=== PATIENT | female | born 1985 | race Caucasian/White ===

== ENCOUNTER 2019-05-30 14:36 | Emergency (ER) | payer MEDICAID ==
[~2019-05-30] VITALS: Ht 177.8 cm; Wt 118.0 kg
[2019-05-30 17:06] VITALS: BP 121/88
== END 2019-05-30 17:50 | disposition home or self-care (01) ==
LOC: ED 15:55
DX: R10.13 Epigastric pain (principal); Z90.49 Acquired absence of other specified parts of digestive tract
CPT/HCPCS: 36415; 74220; 80053; 83690; 84703; 85025; 85379; 99284

== ENCOUNTER 2019-06-05 15:31 | Emergency (ER) | payer MEDICAID ==
[~2019-06-05] VITALS: Ht 175.3 cm; Wt 117.8 kg
--- NOTE | 2019-06-05 16:28 | NUR ---
PT STATES SHE THINKS SHE HAS AN ULCER. PT IS RESTING COMFORTABLE, NO SIGNS OR SYMPTOMS OF DISTRESS
[2019-06-05] MEDS ORDERED: MAALOX/HYOSCYAMINE/LIDOCAINE 45 ML BTL PO ONE (16:30)
[2019-06-05 16:39] LABS: BASOPHILS # (AUTO) 0.04 x10^3/uL (0-0.1); BASOPHILS % (AUTO) 1 % (0-1); EOSINOPHILS # (AUTO) 0.05 x10^3/uL (0-0.4); EOSINOPHILS % (AUTO) 1 % (1-7); LYMPHOCYTES # (AUTO) 1.38 x10^3/uL (1-3.4); LYMPHOCYTES % (AUTO) 18 % (22-44); MD NO; MEAN CORPUSCULAR HEMOGLOBIN 33.8 pg (27.0-34.8); MEAN CORPUSCULAR VOLUME 99.4 fL (80-100); MEAN PLATELET VOLUME 9.6 fL (7.4-10.4); MONOCYTES # (AUTO) 0.58 x10^3/uL (0.2-0.8); MONOCYTES % (AUTO) 8 % (2-9); NEUTROPHILS # (AUTO) 5.57 x10^3/uL (1.8-6.8); NEUTROPHILS % (AUTO) 73 % (42-75); PLATELET COUNT 230 x10^3/uL (130-400); RED BLOOD COUNT 4.68 x10^6/uL (3.82-5.3); RED CELL DISTRIBUTION WIDTH 18.6 % (9.6-15.2)
[2019-06-05 16:41] LABS: ALANINE AMINOTRANSFERASE 66 U/L (12-78); ALBUMIN 3.1 g/dL (3.4-5.0); ANION GAP 8 mmol/L (5-15); CALCIUM 8.7 mg/dL (8.5-10.1); CHLORIDE 110 mmol/L (98-107); CREATININE 0.57 mg/dL (0.55-1.02)
[2019-06-05 16:45] LABS: ALKALINE PHOSPHATASE 135 U/L (45-117); BILIRUBIN,TOTAL 1.3 mg/dL (0.2-1.0); TOTAL PROTEIN 6.1 g/dL (6.4-8.2); TROPONIN I < 0.015 ng/mL (0.000-0.045)
[2019-06-05] MEDS ORDERED: LACTATED RINGERS 1,000 ML IVBOLUS ONE (17:00)
[2019-06-05] MEDS ORDERED: SODIUM CHLORIDE FLUSH 10ML SYR IVF ONE (17:00)
[2019-06-05] MEDS ORDERED: TRAZ-137 PO (17:01)
[2019-06-05] MEDS ORDERED: CLON2TAB PO (17:01)
--- NOTE | 2019-06-05 17:16 | NUR ---
PT AMBULATED TO BATHROOM W OUT DIFFICULTY. UA OBTAINED, IV FLUIDS INFUSING. PT RESTING COMFORTABLE.
[2019-06-05] MEDS ORDERED: MAALOX/HYOSCYAMINE/LIDOCAINE 45 ML BTL ONE (17:32)
[2019-06-05 17:36] LABS: MICROSCOPIC INDICATED
[2019-06-05 17:43] LABS: CULTURE INDICATED? NO
--- NOTE | 2019-06-05 18:20 | NUR ---
Patient/Caregiver given discharge instructions and they have confirmed that they understand the instructions. Patient ambulatory with steady gait.
[2019-06-05] MEDS ORDERED: ONDANSETRON ODT 4 MG ONE (18:25)
[2019-06-05 18:30] VITALS: BP 127/71
[2019-06-05] MEDS ORDERED: ONDANSETRON ODT 4 MG PO ONE (18:30)
[2019-08-18] MEDS ORDERED: METO10TA82 PO (07:57)
[2019-08-18] MEDS ORDERED: ONDA4TAB7 PO (07:58)
[2019-08-18] MEDS ORDERED: AMOX1TAB64 PO (08:08)
[2019-08-18] MEDS ORDERED: PANT40TA3 PO (08:24)
[2019-08-18] MEDS ORDERED: SUCR1TAB33 PO (08:24)
== END 2019-06-05 18:37 | disposition home or self-care (01) ==
LOC: ED 16:19
DX: E83.42 Hypomagnesemia (principal); R53.83 Other fatigue; R94.5 Abnormal results of liver function studies; R19.7 Diarrhea, unspecified; R53.1 Weakness
CPT/HCPCS: 36415; 80053; 81001; 83735; 84484; 84703; 85025; 93005; 99284; J7120; Q0162

== ENCOUNTER 2019-08-25 01:20 | Emergency (ER) | payer MEDICAID, OTHER ==
[~2019-08-25] VITALS: Ht 175.3 cm; Wt 110.0 kg
[~2019-08-25 01:20] MED LIST: AMOX1TAB64 PO; CLON2TAB PO; METO10TA82 PO; ONDA4TAB7 PO; PANT40TA3 PO; SUCR1TAB33 PO; TRAZ-137 PO
[2019-08-25] MEDS ORDERED: ONDANSETRON ODT 4 MG PO ONE (02:00)
[2019-08-25] MEDS ORDERED: ONDANSETRON ODT 4 MG ONE (02:01)
--- NOTE | 2019-08-25 02:05 | NUR ---
PT REPORTS CHEST PAIN RADIATING THROUGH L SHOULDER WELL EPIGASTRIC PAIN. PT REPORTS INCREASING DISCOMFORT WHEN LAYING DOWN. PT TO SEE PRIMARY CARE TODAY AT 10A. PT HAS HAD N/V AND NOT EATEN SINCE EARLY YESTERDAY, IS ABLE TO KEEP WATER DOWN. PT MEDICATED PER DEC. ALL SAFETY MEASURES IN PLACE. IMAGING COMPLETED. MONITORS IN PLACE.
[2019-08-25 02:11] VITALS: BP 135/88
--- NOTE | 2019-08-25 02:14 | NUR ---
PT REPORTS N/V/D STARTING ABOUT A WEEK AGO.
[2019-08-25 02:21] LABS: BASOPHILS # (AUTO) 0.05 x10^3/uL (0-0.1); BASOPHILS % (AUTO) 1 % (0-1); EOSINOPHILS # (AUTO) 0.12 x10^3/uL (0-0.4); EOSINOPHILS % (AUTO) 2 % (1-7); LYMPHOCYTES # (AUTO) 2.31 x10^3/uL (1-3.4); LYMPHOCYTES % (AUTO) 35 % (22-44); MD NO; MEAN CORPUSCULAR HEMOGLOBIN 34.8 pg (27.0-34.8); MEAN CORPUSCULAR HGB CONC 33.4 g/dL (32.4-35.8); MEAN CORPUSCULAR VOLUME 104.2 fL (80-100); MEAN PLATELET VOLUME 9.1 fL (7.4-10.4); MONOCYTES # (AUTO) 0.57 x10^3/uL (0.2-0.8); MONOCYTES % (AUTO) 9 % (2-9); NEUTROPHILS # (AUTO) 3.49 x10^3/uL (1.8-6.8); NEUTROPHILS % (AUTO) 53 % (42-75); PLATELET COUNT 235 x10^3/uL (130-400); RED BLOOD COUNT 4.68 x10^6/uL (3.82-5.3); RED CELL DISTRIBUTION WIDTH 13.4 % (9.6-15.2)
[2019-08-25 02:34] LABS: ALBUMIN 2.9 g/dL (3.4-5.0); ANION GAP 6 mmol/L (5-15); CALCIUM 8.2 mg/dL (8.5-10.1); CHLORIDE 112 mmol/L (98-107)
[2019-08-25 02:38] LABS: CREATININE 0.66 mg/dL (0.55-1.02); TROPONIN I < 0.015 ng/mL (0.000-0.045)
== END 2019-08-25 03:48 | disposition home or self-care (01) ==
LOC: ED 03:00
DX: R07.89 Other chest pain (principal); R11.2 Nausea with vomiting, unspecified; R06.02 Shortness of breath; Z90.49 Acquired absence of other specified parts of digestive tract
CPT/HCPCS: 36415; 71046; 80048; 82040; 84484; 85025; 93005; 99284; Q0162